=== PATIENT | male | born 1940 | race Caucasian/White ===

== ENCOUNTER 2018-05-01 21:06 | Inpatient (IN) | payer OTHER, MEDICAID ==
[~2018-05-01] VITALS: Ht 185.4 cm; Wt 101.6 kg
[~2018-05-01 21:06] MED LIST: A + D FIRST A42.5 GM TOP; A + D FIRST A42.5 GM TP; ANTI-DIARRH1 MG/5 ML PO; ASPIRIN325 PO; AUGMENTIN 875875 MG PO; B12INJ IM; BENAZEPRIL HCL40 MG PO; CARAFATE1 GM/10 ML PO; CARDIZEM CD180 MG PO; CARVEDILOL12.5 MG PO; CARVEDILOL25 MG PO; CARVEDILOL3.125 MG PO; CARVEDILOL6.25 MG PO; CELEXA; CELEXA20 MG PO; CELEXA40 MG PO; CIPRO500 MG PO; COLACE 100 MG100 MG PO; COLACE100 MG PO; COREG25 MG PO; COUMADIN 5 MG TA5 M1 PO; CRESTOR10 MG PO; DIGOXIN250 MCG PO; DOXYCYCLINE HYC50 MG; DULCOLAX5 MG PO; ENOXAPARIN80 MG/0.1 SUBQ; FERROUS GLUCON325 M4 PO; FISH OIL 1,2001 EAC4 PO; FUROSEMIDE 40 M40 M1 PO; GLUCOPHAGE1000 MG PO; GLUCOPHAGE500 MG PO; KLOR-CON 1010 MEQ; KLOR-CON M2020 MEQ PO; LANOXIN 0.120.125 M1 PO; LASIX 40 MG TAB40 M2 PO; LASIX 80 MG TAB80 MG PO; LIPITOR 20 MG T20 M1 PO; LISINOPRIL5 MG PO; MAGNESIUM OXID400 MG PO; METFORMIN HCL500 MG PO; MIRALAX17 GM PO; OMEPRAZOLE20 M2 PO; OMEPRAZOLE40 MG PO; PHENERGAN 25 MG25 MG PO; POTASSIUM20 PO; PRINIVIL5 MG PO; PROTONIX40 M1 PO; PROTONIX40 M2 PO; REGLAN 10 MG TA10 MG PO; SAW PALMETTO C1 EACH PO; SIMVASTATIN40 MG PO; SPIRONOLACTONE25 M1 PO; TYLENOL325 MG PO; VITAMIN D1000 UNI2 PO; XANAX 0.5 MG0.5 MG PO; ZOCOR PO; ZOFRAN4 MG PO
[2018-05-01 21:15] VITALS: BP 82/42
[2018-05-01] MEDS ORDERED: HUMALOG100 UNIT/1 (21:25)
[2018-05-01] MEDS ORDERED: LEVEMIR SUBQ (21:26)
[2018-05-01] MEDS ORDERED: ALLOPURINOL 10100 M1 (21:27)
[2018-05-01] MEDS ORDERED: ELIQUIS5 MG (21:27)
[2018-05-01 21:53] LABS: HEMATOCRIT 31.6 % (42.0-52.0); HEMOGLOBIN 9.8 gm/dL (14.0-18.0); MCH 25.1 pg (26.0-34.0); MCV 80.9 fL (80.0-100.0); MPV 8.4 fl. (7.2-11.1); NUCLEATED RBCS 0 /100WBC; PLATELET COUNT* 303 thou/uL (150-400); RBC 3.91 mil/uL (4.50-6.00); RDW-CV 19.4 % (10.5-14.5); WBC 20.1 thou/uL (4.0-11.0)
[2018-05-01 22:04] LABS: ANION GAP 11 mmol/L (7-16); BUN 35 mg/dL (7-18); CALCIUM 8.3 mg/dL (8.5-10.1); CHLORIDE 101 mmol/L (98-107); CO2 26 mmol/L (21-32); CREATININE 2.2 mg/dL (0.6-1.3); GLUCOSE 162 mg/dL (70-99); POTASSIUM 4.7 mmol/L (3.5-5.1); SODIUM 138 mmol/L (136-145)
[2018-05-01 22:17] LABS: ALBUMIN 2.5 g/dL (3.4-5.0); ALKALINE PHOSPHATASE 133 U/L (46-116); NT-PRO BRAIN NAT PEPTIDE 2315 pg/mL (<300); SGOT 10 U/L (15-37); SGPT 13 U/L (30-65); TOTAL BILIRUBIN 0.6 mg/dL (<0.1-1.0); TOTAL PROTEIN 7.1 g/dL (6.4-8.2); TROPONIN-I LEVEL <0.06 ng/mL (<0.06)
[2018-05-01 22:59] LABS: ABSOLUTE BASOPHILS 0.2 thou/uL (0.0-0.2); ABSOLUTE LYMPHOCYTES 1.4 thou/uL (0.8-5.3); ABSOLUTE MONOCYTES 1.4 thou/uL (0.0-1.2); ABSOLUTE NEUTROPHILS 17.1 thou/uL (1.6-8.1)
[2018-05-01 23:00] LABS: OVALOCYTES Occasional; PLATELET ESTIMATE ADEQUATE
[2018-05-01 23:01] LABS: ANISOCYTOSIS 1+
[2018-05-01 23:42] VITALS: BP 99/38
[2018-05-01 23:52] LABS: URINE BILIRUBIN NEGATIVE (Negative); URINE BLOOD TRACE (Negative); URINE CLARITY CLEAR; URINE COLOR YELLOW; URINE GLUCOSE-RANDOM NEGATIVE (Negative); URINE KETONES NEGATIVE (Negative); URINE LEUKOCYTES-REFLEX NEGATIVE (Negative); URINE NITRITE-REFLEX NEGATIVE (Negative); URINE PROTEIN NEGATIVE (Negative); URINE SPECIFIC GRAVITY 1.015 (1.005-1.030); URINE UROBILINOGEN 0.2 E.U./dl (0.2-1.0)
[2018-05-02] VITALS: BP 88/52
[2018-05-02] MEDS ORDERED: SENNA8.6 MG PO (01:44)
[2018-05-02] MEDS ORDERED: MIRALAX17 GM PO (01:45)
[2018-05-02 03:54] VITALS: BP 101/51
[2018-05-02 07:58] VITALS: BP 92/44
--- NOTE | 2018-05-02 14:30 | 2DMMODE ---
[place] [address] 2 D/M-MODE ECHOCARDIOGRAM Name: TAYA GUSMAN Room: [address] IN [facility]#: [id number] Admission: 05/01/18 Attend Phys: Robert Wang Discharge: Date of : 40 Date of Service: 05/02/18 1430 Report #: [id number] THIS REPORT FOR: //name// APPROVED REPORT Study performed: 05/02/2018 11:17:36 EXAM: Comprehensive 2D, Doppler, and color-flow Echocardiogram Patient Location: In-Patient Room #: [facility] Status: routine BSA: 2.04 HR: 64 bpm BP: 92/44 mmHg Rhythm: Atrial Fibrillation Other Information Study Quality: Good Indications Hypotension Congestive Heart Failure Atrial Fibrillation 2D Dimensions LVEF(%): 53.08 (>50%) IVSd: 12.52 (7-11mm) LVOT Diam: 22.10 (18-24mm) LVDd: 51.94 mm PWd: 12.21 (7-11mm) Ascending Ao: 42.22 (22-36mm) LVDs: 37.65 (25-40mm) Aortic Root: 38.53 mm Cam's LVEF: 53.08 % Volumes Left Atrial Volume (Systole) LA ESV Index: 49.10 mL/m2 Aortic Valve AoV Peak William.: 1.87 m/s AO Peak Gr.: 14.05 mmHg LVOT Max P.19 mmHg AO Mean Gr.: 7.84 mmHg LVOT Mean P.41 mmHg LVOT Max V: 1.14 m/s AO V2 VTI: 27.03 cm LVOT Mean V: 0.70 m/s XIN (VTI): 2.38 cm2 LVOT V1 VTI: 16.80 cm AI [place]: 1.47 m/s2 [place] [address] 2 D/M-MODE ECHOCARDIOGRAM Name: TAYA GUSMAN Room: [address] IN ..#: [id number] Admission: 05/01/18 Attend Phys: Robert Wang Discharge: Date of : 40 Date of Service: 05/02/18 1430 Report #: [id number] AI PHT: 704.06 ms Mitral Valve MV Decel. Time: 121.83 ms MV PHT: 35.33 ms MVA (PHT): 6.23 cm2 TDI Lateral E' William.: 0.12 m/s Pulmonary Valve PV Peak William.: 1.59 m/s PV Peak Gr.: 10.14 mmHg Left Ventricle The left ventricle is normal size. There is normal LV segmental wall motion. There is normal left ventricular wall thickness. Left ventricular systolic function is normal. The left ventricular ejection fraction is within the normal range. LVEF is 60%. This study is not technically sufficient to allow evaluation of the LV diastolic function due to atrial fibrillation. Right Ventricle The right ventricle is normal size. The right ventricular systolic function is normal. Atria Left atrium is mildly dilated. The right atrium size is normal. Aortic Valve Mild aortic valve sclerosis. Mild aortic regurgitation. There is no aortic valvular stenosis. Mitral Valve The mitral valve is normal in structure. There is no mitral valve regurgitation noted. No evidence of mitral valve stenosis. Tricuspid Valve The tricuspid valve is normal in structure. Unable to assess PA pressure. Trace tricuspid regurgitation. Pulmonic Valve The pulmonary valve is normal in structure. There is no pulmonic valvular [place] [address] 2 D/M-MODE ECHOCARDIOGRAM Name: TAYA GUSMAN Room: [address]#: [id number] Admission: 05/01/18 Attend Phys: Robert Wang Discharge: Date of : 40 Date of Service: 05/02/18 1430 Report #: [id number] The aortic root is normal in size. IVC is normal in size and collapses with >50% inspiration Pericardium There is no pericardial effusion. <Conclusion> The left ventricle is normal size. There is normal left ventricular wall thickness. Left ventricular systolic function is normal. The left ventricular ejection fraction is within the normal range. LVEF is 60%. This study is not technically sufficient to allow evaluation of the LV diastolic function due to atrial fibrillation. The right ventricle is normal size. Left atrium is mildly dilated. Mild aortic valve sclerosis. Mild aortic regurgitation. There is no aortic valvular stenosis. The mitral valve is normal in structure. IVC is normal in size and collapses with >50% inspiration There is no pericardial effusion. There is normal LV segmental wall motion. <ELECTRONICALLY SIGNED> By: Chaka Taylor MD, FACC 05/02/18 1430 1430 1430 Chaka Taylor MD, FACC /INF
[2018-05-02 15:37] VITALS: BP 91/50
[2018-05-02 20:00] VITALS: BP 81/43
[2018-05-02 20:02] LABS: HEMATOCRIT 27.9 % (42.0-52.0); HEMOGLOBIN 8.7 gm/dL (14.0-18.0); MCH 25.3 pg (26.0-34.0); MCHC 31.2 g/dL (28.0-37.0); MPV 8.8 fl. (7.2-11.1); NUCLEATED RBCS 0 /100WBC; PLATELET COUNT* 264 thou/uL (150-400); RBC 3.44 mil/uL (4.50-6.00); RDW-CV 19.1 % (10.5-14.5); WBC 15.6 thou/uL (4.0-11.0)
[2018-05-02 20:04] LABS: CALCIUM 7.6 mg/dL (8.5-10.1); CREATININE 1.6 mg/dL (0.6-1.3); POTASSIUM 4.4 mmol/L (3.5-5.1)
[2018-05-02 20:30] LABS: ABSOLUTE EOSINOPHILS 0.2 thou/uL (0.0-0.7); ABSOLUTE LYMPHOCYTES 1.7 thou/uL (0.8-5.3); ABSOLUTE MONOCYTES 1.2 thou/uL (0.0-1.2); ABSOLUTE NEUTROPHILS 12.5 thou/uL (1.6-8.1)
[2018-05-02 20:31] LABS: ANISOCYTOSIS 1+; MICROCYTES Occasional; OVALOCYTES 1+
[2018-05-02 20:32] LABS: PLATELET ESTIMATE ADEQUATE
[2018-05-03] VITALS: BP 102/48
[2018-05-03 04:00] VITALS: BP 87/43
[2018-05-03 08:00] VITALS: BP 84/42
[2018-05-03 12:37] VITALS: BP 87/41
[2018-05-03 13:25] LABS: HEMOGLOBIN 9.8 gm/dL (14.0-18.0); MCH 25.3 pg (26.0-34.0); MCHC 30.6 g/dL (28.0-37.0); MCV 82.6 fL (80.0-100.0); MPV 8.6 fl. (7.2-11.1); NUCLEATED RBCS 0 /100WBC; PLATELET COUNT* 274 thou/uL (150-400); RBC 3.88 mil/uL (4.50-6.00); RDW-CV 19.1 % (10.5-14.5); WBC 15.5 thou/uL (4.0-11.0)
[2018-05-03 13:50] LABS: ABSOLUTE LYMPHOCYTES 1.2 thou/uL (0.8-5.3); ABSOLUTE MONOCYTES 0.3 thou/uL (0.0-1.2); ANISOCYTOSIS 1+; PLATELET ESTIMATE ADEQUATE; POIKILOCYTOSIS 1+
[2018-05-03 13:52] LABS: CALCIUM 8.1 mg/dL (8.5-10.1); CREATININE 1.6 mg/dL (0.6-1.3); POTASSIUM 4.7 mmol/L (3.5-5.1)
[2018-05-03 16:33] VITALS: BP 112/52
--- NOTE | 2018-05-03 17:29 | EKG ---
[place] [address] ELECTROCARDIOGRAM REPORT Name: TAYA GUSMAN Room: [address] ADM IN M.R.#: [id number] Admission: 05/01/18 Attend Phys: Alena Caceres Discharge: Date of : 40 Report #: [id number] THIS REPORT FOR: //name// [facility] ED Test Date: 2018-05-01 Test Time: 21:44:59 Pat Name: TAYA GUSMAN Department: Room: [facility] Gender: M Senior Branch Manager: KAEL : 1940 Requested By: Purvi Holm Order Number: [id number] MD: Ted Solano Measurements Intervals [place] Rate: 81 P: IN: QRS: -68 QRSD: 159 T: 45 QT: 446 QTc: 518 Interpretive Statements Atrial fibrillation Right bundle branch block Inferior infarct, old Compared to ECG 05/16/2015 10:07:14 Atrial flutter no longer present Left anterior fascicular block no longer present Myocardial infarct finding still present Electronically Signed On 05-03-2018 17:29:08 CDT by Ted Solano [email or web address] <ELECTRONICALLY SIGNED> By: Ted Solano MD, FACC 05/03/18 1729 Ted Solano MD, FAC /EPI
[2018-05-04] VITALS: BP 104/52
[2018-05-04 04:00] VITALS: BP 96/55
[2018-05-04 04:43] LABS: ABSOLUTE BASOPHILS 0.1 thou/uL (0.0-0.2); ABSOLUTE MONOCYTES 0.6 thou/uL (0.0-1.2); ABSOLUTE NEUTROPHILS 9.5 thou/uL (1.6-8.1); BASOPHILS 1.2 %; EOSINOPHILS 0.1 %; HEMOGLOBIN 8.2 gm/dL (14.0-18.0); LYMPHOCYTES 8.9 %; MCH 25.8 pg (26.0-34.0); MCHC 31.6 g/dL (28.0-37.0); MCV 81.6 fL (80.0-100.0); MONOCYTES 5.1 %; MPV 8.6 fl. (7.2-11.1); NUCLEATED RBCS 0 /100WBC; PLATELET COUNT* 243 thou/uL (150-400); POLYS 84.7 %; RBC 3.19 mil/uL (4.50-6.00); WBC 11.2 thou/uL (4.0-11.0)
[2018-05-04 04:55] LABS: CALCIUM 7.9 mg/dL (8.5-10.1); CREATININE 1.2 mg/dL (0.6-1.3); POTASSIUM 4.6 mmol/L (3.5-5.1)
[2018-05-04 06:06] LABS: ESR (SEDRATE) 71 mm/hr (0-20)
[2018-05-04 09:00] VITALS: BP 112/52
[2018-05-04 12:51] VITALS: BP 127/82
[2018-05-04 19:30] VITALS: BP 131/71
[2018-05-05] VITALS (11 sets, daily range): BP systolic 79–115; BP diastolic 48–75
--- NOTE | 2018-05-05 11:33 | CON ---
[address] [address] CONSULTATION Name: TAYA GUSMAN Room: [address] IN .R.#: [id number] Admission: 05/01/18 Attend Phys: Alena Caceres Discharge: Date of : 40 Report #: [id number] THIS REPORT FOR: //name// CC: Silverio Wang DATE OF SERVICE: 05/04/2018 ATTENDING PHYSICIAN: Bessy Chen MD REASON FOR EVALUATION: Elevated acute phase reactants, specifically sed rate and CRP, unclear significance. HISTORY OF PRESENT ILLNESS: Chart reviewed, patient examined. 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 He reports falling off his wheelchair. On evaluation, he was found to have some digoxin toxicity. Chest x-ray showed basilar changes. Urinalysis was otherwise unremarkable. On questioning, he denies significant amount of pain at this point. quite limited, lives in a facility, do not appreciate any exposure history. He denies particular breathing issues. No abdominal complaints on particular question about diarrhea or constipation. He has been empirically started on ceftriaxone. ALLERGIES: None known. MEDICATIONS: Include insulin, hydrocortisone, senna, docusate sodium, atorvastatin, ceftriaxone, ondansetron, insulin lispro, allopurinol. PAST MEDICAL HISTORY: As described above, diabetes mellitus type 2 complicated by vasculopathy. He has a cardiomyopathy with known history of congestive heart failure, reflux, depression, dementia, BPH. Does have a history of obstructive sleep apnea, refuses CPAP. Has a history of elevated cholesterol, atrial fibrillation, hypertension. SOCIAL HISTORY: Nonsmoker, no ethanol. FAMILY HISTORY: Noncontributory. REVIEW OF SYSTEMS: As above. PHYSICAL EXAMINATION: GENERAL: He is arousable, in mild to moderate distress. He seems to be tracking at least to some degree. He is chronically ill and undernourished. VITAL SIGNS: Temperature 97.7, pulse 78, respirations 14, blood pressure 127/82. [place] [address] CONSULTATION Name: TAYA GUSMAN Room: [address] IN [facility]#: [id number] Admission: 05/01/18 Attend Phys: Alena Caceres Discharge: Date of : 40 Report #: [id number] SKIN: Warm and dry. NECK: Supple. LUNGS: Have some diminished breath sounds and crackles at the bases. HEART: Irregular. No appreciated murmur. ABDOMEN: Soft, mildly distended. There are no peritoneal signs. EXTREMITIES: His lower extremities, vascular insufficiency appearance. They are somewhat cool to touch. There are no inflammatory eruptions noted. Joints appear to be unremarkable as well. GENITOURINARY: Deferred. RECTAL: Deferred. LABORATORY DATA: CBC: White count of 11.2, H and H 8.2 and 26.0, platelets of 243. Differential unremarkable. Sed rate was 71. CRP elevated at 114.8. Electrolytes: Sodium 135, potassium 4.6, chloride 107, bicarbonate is 23, BUN and creatinine 22 and 1.2, estimated GFR 59. Ferritin was actually normal at 114. Lactic acid of 1.7. Blood cultures sterile thus far. Digoxin was 2.6 on admission. Chest x-ray: Left basilar atelectasis, possible small effusion. Liver functions otherwise unremarkable. Borderline elevated alkaline phosphatase of 133. Calcium was 8.3. . Urinalysis unremarkable. ASSESSMENT: Elevated sedimentation rate as well as CRP and the patient does have a significant amount of medical disease burden. I do not see any focus of infection. Did have a negative MYRANDA back in 2010 and a normal sed rate in 2010 as well. At this point, probably not reasonable to continue the ceftriaxone. Certainly, had some marker indicative of some sort of degree of inflammation. We will repeat the MYRANDA, some additional studies. maybe worthwhile to repeat it to see if it is trending up or down coming days to weeks. <ELECTRONICALLY SIGNED> By: Juan Flower MD 05/05/18 1133 1342 0040Joshweta Flower MD /nt
[2018-05-05 13:32] LABS: HEMATOCRIT 31.5 % (42.0-52.0); HEMOGLOBIN 9.4 gm/dL (14.0-18.0); MCH 24.9 pg (26.0-34.0); MCHC 29.9 g/dL (28.0-37.0); MCV 83.2 fL (80.0-100.0); MPV 8.3 fl. (7.2-11.1); NUCLEATED RBCS 0 /100WBC; RBC 3.78 mil/uL (4.50-6.00); RDW-CV 19.3 % (10.5-14.5); WBC 21.7 thou/uL (4.0-11.0)
[2018-05-05 13:39] LABS: PLATELET COUNT* 326 thou/uL (150-400)
[2018-05-05 13:43] LABS: APTT 32.7 Seconds (25.0-31.3); INR 1.1; PROTIME 10.9 Seconds (9.20-11.50)
[2018-05-05 13:46] LABS: CALCIUM 7.4 mg/dL (8.5-10.1); CREATININE 1.5 mg/dL (0.6-1.3)
[2018-05-05 13:50] LABS: ALBUMIN 1.9 g/dL (3.4-5.0); MAGNESIUM 2.2 mg/dL (1.8-2.4); PHOSPHORUS* 3.1 mg/dL (2.5-4.9); TOTAL BILIRUBIN 0.2 mg/dL (<0.1-1.0)
[2018-05-05 14:24] LABS: ANISOCYTOSIS 1+; HYPOCHROMASIA 1+; OVALOCYTES Occasional
[2018-05-05 14:49] LABS: ABSOLUTE LYMPHOCYTES 1.1 thou/uL (0.8-5.3); ABSOLUTE MONOCYTES 1.1 thou/uL (0.0-1.2); ABSOLUTE NEUTROPHILS 19.5 thou/uL (1.6-8.1)
[2018-05-06] VITALS (16 sets, daily range): BP systolic 75–98; BP diastolic 14–67
[2018-05-06 03:47] LABS: HEMATOCRIT 29.1 % (42.0-52.0); MCH 25.4 pg (26.0-34.0); MCHC 30.8 g/dL (28.0-37.0); MCV 82.6 fL (80.0-100.0); MPV 8.5 fl. (7.2-11.1); RBC 3.53 mil/uL (4.50-6.00); RDW-CV 19.5 % (10.5-14.5)
[2018-05-06 04:11] LABS: ALBUMIN 1.8 g/dL (3.4-5.0); CALCIUM 7.6 mg/dL (8.5-10.1); CREATININE 1.5 mg/dL (0.6-1.3); MAGNESIUM 2.4 mg/dL (1.8-2.4); POTASSIUM 5.1 mmol/L (3.5-5.1); TOTAL BILIRUBIN 0.3 mg/dL (<0.1-1.0); TOTAL PROTEIN 5.7 g/dL (6.4-8.2)
[2018-05-06 04:31] LABS: TROPONIN-I LEVEL 2.05 ng/mL (<0.06)
[2018-05-06 12:13] LABS: CALCIUM 7.6 mg/dL (8.5-10.1); CREATININE 1.6 mg/dL (0.6-1.3); POTASSIUM 5.2 mmol/L (3.5-5.1)
[2018-05-06 16:37] LABS: URINE BILIRUBIN NEGATIVE (Negative); URINE BLOOD 3+ (Negative); URINE CLARITY CLEAR; URINE COLOR YELLOW; URINE GLUCOSE-RANDOM NEGATIVE (Negative); URINE KETONES NEGATIVE (Negative); URINE LEUKOCYTES-REFLEX NEGATIVE (Negative); URINE NITRITE-REFLEX NEGATIVE (Negative); URINE PROTEIN 2+ (Negative); URINE SPECIFIC GRAVITY >= 1.030 (1.005-1.030); URINE UROBILINOGEN 0.2 E.U./dl (0.2-1.0)
[2018-05-06 16:48] LABS: BACTERIA-REFLEX 1-9 Few /HPF (None Seen); MUCUS 0-3 Light strn/LPF (None Seen); SQUAMOUS 0-3 Few /LPF (0-3); URINE RBC >20 Many /HPF (0-2); URINE WBC-REFLEX 0-5 Rare /HPF (0-5)
[2018-05-06 16:50] LABS: CRYSTALS None Seen /LPF (None Seen); FINE GRANULAR CASTS 0-3 Few /LPF (None Seen)
[2018-05-07] VITALS (15 sets, daily range): BP systolic 74–101; BP diastolic 46–68
[2018-05-07 04:13] LABS: ABSOLUTE BASOPHILS 0.1 thou/uL (0.0-0.2); ABSOLUTE MONOCYTES 1.6 thou/uL (0.0-1.2); ABSOLUTE NEUTROPHILS 14.7 thou/uL (1.6-8.1); BASOPHILS 0.3 %; EOSINOPHILS 0.1 %; HEMATOCRIT 27.8 % (42.0-52.0); HEMOGLOBIN 8.6 gm/dL (14.0-18.0); LYMPHOCYTES 10.9 %; MCH 25.8 pg (26.0-34.0); MCV 83.1 fL (80.0-100.0); MONOCYTES 8.6 %; MPV 9.3 fl. (7.2-11.1); NUCLEATED RBCS 0 /100WBC; PLATELET COUNT* 216 thou/uL (150-400); POLYS 80.1 %; RBC 3.34 mil/uL (4.50-6.00); RDW-CV 19.7 % (10.5-14.5); WBC 18.4 thou/uL (4.0-11.0)
[2018-05-07 04:55] LABS: ALBUMIN 2.1 g/dL (3.4-5.0); ALKALINE PHOSPHATASE 84 U/L (46-116); ANION GAP 9 mmol/L (7-16); BUN 28 mg/dL (7-18); CALCIUM 7.6 mg/dL (8.5-10.1); CHLORIDE 110 mmol/L (98-107); CHOLESTEROL 110 mg/dL (<200); CO2 20 mmol/L (21-32); CREATININE 1.5 mg/dL (0.6-1.3); GLUCOSE 170 mg/dL (70-99); HDL CHOLESTEROL 22 mg/dL (>40); LDL CHOLESTEROL 68 mg/dL (<100); MAGNESIUM 2.4 mg/dL (1.8-2.4); POTASSIUM 4.9 mmol/L (3.5-5.1); SGOT 824 U/L (15-37); SGPT 1062 U/L (30-65); SODIUM 139 mmol/L (136-145); TOTAL BILIRUBIN 0.4 mg/dL (<0.1-1.0); TOTAL PROTEIN 5.5 g/dL (6.4-8.2); TRIGLYCERIDE 100 mg/dL (<150); VLDL 20 mg/dL (<40)
[2018-05-07 04:56] LABS: % SATURATION 11 % (20-39); IRON 17 ug/dL (50-175)
[2018-05-07 04:57] LABS: SERUM ASSESSMENT CLEAR; TROPONIN-I LEVEL 2.14 ng/mL (<0.06)
--- NOTE | 2018-05-07 11:14 | CON ---
[address] [address] CONSULTATION Name: TAYA GUSMAN Room: [address] IN .R.#: [id number] Admission: 05/01/18 Attend Phys: Alena Caceres Discharge: Date of : 40 Report #: [id number] THIS REPORT FOR: //name// CC: Silverio Wang DATE OF SERVICE: 05/06/2018 CONSULT REQUESTED BY: Dr. Gallo. INDICATION FOR CONSULTATION: Pneumonia/possible sepsis. HISTORY OF PRESENT ILLNESS: This is a 77-year-old gentleman. His past medical history is as mentioned below. The patient does not have a history of COPD and is essentially a lifetime nonsmoker. He, however, does have a history of esophageal strictures and has had dilatation performed in the past. He also has obstructive sleep apnea and refuses CPAP. Further, the patient has atrial fibrillation and he has been anticoagulated. He also has a previous history of MRSA colonization. He is a resident of a senior care at this time. He is initially admitted on 05/01/2018, presentation was with him being found on the floor. The senior care had reported poor oral intake and increasing weakness. Upon initial evaluation, it was found that the patient in fact has had recently increasing dysphagia. The patient is unable to describe how long he has had this; however, he does report progressive worsening over the last couple of weeks. An EGD was planned. The patient previously being on anticoagulation with Eliquis, this was held in preparation for the EGD. The patient also was found have an elevated digoxin level on initial presentation. Since then, the patient has noted to be hypotensive. He is not describing any chest pain; however, he does have elevation in troponin I, which is consistent with a non-ST myocardial infarction. He has passed his bedside swallow evaluation; however, he has difficulty swallowing on account of food getting stuck in his chest. He does have swelling of the lower extremities. He is maintaining blood pressure, but his blood pressure is on the lower side at 89/59. He does appear to be adequately perfused at this time. The patient answered to the negative for 12 questions for review of systems except as mentioned above. The patient, however, does provide only limited history. PAST MEDICAL HISTORY: Esophageal dysphagia. He has had dilatation performed in the past. Chronic atrial fibrillation on anticoagulation, dementia, colon polyps, gastroesophageal reflux disease, benign prostatic hypertrophy, obstructive sleep apnea refused CPAP in the past, hypertension and hyperlipidemia. The patient's last available echocardi[place] [address] CONSULTATION Name: TAYA GUSMAN Room: [address] IN [facility]#: [id number] Admission: 05/01/18 Attend Phys: Alena Caceres Discharge: Date of : 40 Report #: [id number] recently a couple of days ago shows a left ventricular ejection fraction of 60%. The right heart pressures are not elevated on this echo. There is mild aortic regurgitation. SOCIAL HISTORY: He is a resident of a senior care. No known history of heavy alcohol use or illegal drug use and is essentially a lifetime nonsmoker. FAMILY HISTORY: Noncontributory. CURRENT MEDICATIONS: List in [facility] reviewed. HOME MEDICATIONS: List also in [facility] reviewed. PHYSICAL EXAMINATION: GENERAL: He is alert, awake and oriented; however, is able to provide only a limited history. VITAL SIGNS: He has a pulse of 90 with a blood pressure of 89/59, but he is sitting in bed with assistance and he does not appear to be in any distress. He does not have any hypoperfusion. He is saturating 98%. He is afebrile with temperature of 36.4. He is only on 1 liter nasal cannula. His respiratory rate has been labile between 20 and 27. HEENT: Head is normocephalic and atraumatic. Pupils are equal and reactive. There is no throat erythema. NECK: Does not show raised JVP, asymmetry, mass or lymph nodes. CHEST: Symmetrical expansion on inspection and palpation. On auscultation, chest is essentially clear. HEART: Irregular, no murmur. ABDOMEN: Soft and nontender. EXTREMITIES: Lower extremities showed 1+ edema. There is no calf tenderness. SKIN: Dry and intact. NEUROLOGICAL: Moves all extremities bilaterally equally and spontaneously with no focal deficit identified. LABORATORY DATA: The patient's chest x-ray does not show major abnormalities; however, there is a large infiltrate in the right lower lobe which was identified on the CT of the abdomen and pelvis just 2 days ago. This was not well visualized on the x-ray. There is a smaller infiltrate in the left lower lobe as well. The patient's lab work including CBC as well as chemistries, which do show mild elevation in creatinine to 1.5 and note that his baseline is 1.2 in [facility] reviewed. Coagulation studies in [facility] reviewed. Digoxin level which is elevated, reviewed. ASSESSMENT AND PLAN: 1. Aspiration pneumonia/pulmonary infiltrates. There are large pulmonary infiltrates noted on the recent CT of the abdomen and pelvis. These are not well visualized on the x-ray. At this time, the patient is on vancomycin, [facility] [address] [place] [address] CONSULTATION Name: TAYA GUSMAN Room: [address]#: [id number] Admission: 05/01/18 Attend Phys: Alena Caceres Discharge: Date of : 40 Report #: [id number] meropenem and ceftriaxone as well as Levaquin. For now, we will go ahead and discontinue Levaquin and ceftriaxone. For now, I continued with vancomycin as well as meropenem. If the patient remains stable then I will be inclined to switch his meropenem over to Zosyn tomorrow. We will reassess vancomycin tomorrow. He does have atypical coverage on account of the fact that he has already had Levaquin this morning. This should last in the system likely for the next 48 hours. If he continues to improve, then potentially we could switch his vancomycin over to doxycycline in the next day or two. Recommend maintaining strict aspiration precautions. He needs to be fully sitting up when taking orally. 2. Esophageal dysphagia. He is obviously having dysphagia with solid food. I ordered a clear liquid diet pending EGD and esophageal dilatation. Once this is performed, the patient may benefit from a video swallow down the line. He has passed his bedside swallow. Therefore, we will continue with clear liquids; however, as noted above he needs to be fully sitting up when he is taking orally. Note that he has a history of gastroesophageal reflux disease and takes a proton pump inhibitor at home. Therefore, I would go ahead and give him Protonix IV as well for now pending GI review. 3. Hypotension/mild renal insufficiency/fluid overload. He appears to be overall fluid body volume overloaded. He is only on 1 liter nasal cannula, though his blood pressure is soft. I will go ahead and give him albumin. I will cut back on normal saline. I may in fact discontinue saline soon. We will watch his creatinine closely. Note that there is mention of adrenal insufficiency in the chart as well. It is not known to me as to whether this is suspected adrenal insufficiency during this admission or whether the patient has a previous history 4. Non-ST myocardial infarction. The Cardiology service is on the case. 5. Elevated Digoxin level, defer to Cardiology. 6. Chronic atrial fibrillation. Note that the patient is on anticoagulation at his senior care with Eliquis. Thanks for this consultation. <ELECTRONICALLY SIGNED> By: Karson Fabian MD 05/07/18 1114 1114 0022Adori Fabian MD /nt
--- NOTE | 2018-05-07 15:08 | EKG ---
[place] [address] ELECTROCARDIOGRAM REPORT Name: TAYA GUSMAN Room: [address] ADM IN M.R.#: [id number] Admission: 05/01/18 Attend Phys: Alena Caceres Discharge: Date of : 40 Report #: [id number] THIS REPORT FOR: //name// [facility] Test Date: 2018-05-07 Test Time: 08:25:49 Pat Name: TAYA GUSMAN Department: Room: [address] Gender: M Staff Anesthesiologist: : 1940 Requested By: Taya Escudero Order Number: [id number] Nathaly MD: Chaka Taylor Measurements Intervals [place] Rate: 116 P: [place]: QRS: -73 QRSD: 145 T: 102 QT: 345 QTc: 480 Interpretive Statements Atrial fibrillation Ventricular tachycardia, unsustained Right bundle branch block Consider inferior infarct Anterior infarct, age indeterminate Compared to ECG 05/01/2018 21:44:59 Ventricular tachycardia now present Myocardial infarct finding still present Electronically Signed On 05-07-2018 15:08:24 CDT by Chaka Taylor [email or web address] <ELECTRONICALLY SIGNED> By: Chaka Taylor MD, FACC 05/07/18 1508 0825 Chaka Taylor MD, [facility] /EPI
[2018-05-07 15:10] LABS: HEPATITIS B SURFACE AG Negative (Negative)
[2018-05-08] VITALS (23 sets, daily range): BP systolic 81–102; BP diastolic 50–75
[2018-05-08 05:17] LABS: ABSOLUTE LYMPHOCYTES 1.7 thou/uL (0.8-5.3); ABSOLUTE MONOCYTES 1.2 thou/uL (0.0-1.2); ABSOLUTE NEUTROPHILS 13.5 thou/uL (1.6-8.1); BASOPHILS 0.1 %; EOSINOPHILS 0.1 %; HEMATOCRIT 29.9 % (42.0-52.0); LYMPHOCYTES 10.3 %; MCH 25.4 pg (26.0-34.0); MCHC 30.2 g/dL (28.0-37.0); MCV 83.9 fL (80.0-100.0); MONOCYTES 7.2 %; MPV 10.3 fl. (7.2-11.1); NUCLEATED RBCS 1 /100WBC; PLATELET COUNT* 225 thou/uL (150-400); POLYS 82.3 %; RBC 3.56 mil/uL (4.50-6.00); RDW-CV 19.2 % (10.5-14.5); WBC 16.4 thou/uL (4.0-11.0)
[2018-05-08 06:00] LABS: CALCIUM 8.2 mg/dL (8.5-10.1); CREATININE 1.6 mg/dL (0.6-1.3); MAGNESIUM 2.7 mg/dL (1.8-2.4); POTASSIUM 4.8 mmol/L (3.5-5.1); TOTAL BILIRUBIN 0.6 mg/dL (<0.1-1.0); TOTAL PROTEIN 5.9 g/dL (6.4-8.2)
--- NOTE | 2018-05-08 14:05 | 2DMMODE ---
[place] [address] 2 D/M-MODE ECHOCARDIOGRAM Name: TAYA GUSMAN Room: [address] ADM IN [facility]#: [id number] Admission: 05/01/18 Attend Phys: Robert Wang Discharge: Date of : 40 Date of Service: 05/08/18 1405 Report #: [id number] THIS REPORT FOR: //name// APPROVED REPORT Study performed: 05/08/2018 10:56:49 EXAM: Limited 2D Echocardiogram Patient Location: In-Patient Room #: [facility] Status: routine BSA: 2.26 HR: 92 bpm BP: 96/64 mmHg Rhythm: NSR Other Information Study Quality: Good Indications Hypotension Congestive Heart Failure Assess EF 2D Dimensions LVEF(%): 20.90 (>50%) IVSd: 10.17 (7-11mm) LVDd: 60.99 mm PWd: 10.02 (7-11mm) LVDs: 55.06 (25-40mm) Aortic Root: 40.17 mm Cam's LVEF: 20.90 % Left Ventricle Left ventricle is mildly dilated. There is global hypokinesis of the left ventricle. There is normal left ventricular wall thickness. Left ventricular systolic function is severely decreased. LVEF is 20%. Right Ventricle The right ventricle is normal size. The right ventricular systolic function is normal. Atria Left atrium is mildly dilated. Right [place] [address] 2 D/M-MODE ECHOCARDIOGRAM Name: TAYA GUSMAN Room: [address] IN M.R.#: [id number] Admission: 05/01/18 Attend Phys: Robert Wang Discharge: Date of : 40 Date of Service: 05/08/18 1405 Report #: [id number] Aortic Valve Mild aortic valve sclerosis. Mitral Valve The mitral valve is normal in structure. Tricuspid Valve The tricuspid valve is normal in structure. Pulmonic Valve The pulmonary valve is normal in structure. Great Vessels The aortic root is normal in size. IVC is normal in size and collapses >50% with inspiration. Pericardium There is no pericardial effusion. Large left pleural effusion. <Conclusion> Left ventricle is mildly dilated. There is normal left ventricular wall thickness. Left ventricular systolic function is severely decreased. LVEF is 20%. There is global hypokinesis of the left ventricle. Left atrium is mildly dilated. Right atrium is mildly dilated. Mild aortic valve sclerosis. Large left pleural effusion. <ELECTRONICALLY SIGNED> By: Miguel Hernandez MD, FACC 05/08/18 1405 140 1405 Miguel Hernandez MD, FACC /INF
[2018-05-08 19:41] LABS: ALBUMIN 3.1 g/dL (3.4-5.0); CALCIUM 8.3 mg/dL (8.5-10.1); CREATININE 1.7 mg/dL (0.6-1.3); MAGNESIUM 2.9 mg/dL (1.8-2.4); TOTAL PROTEIN 5.8 g/dL (6.4-8.2)
[2018-05-09] VITALS (16 sets, daily range): BP systolic 77–112; BP diastolic 45–68
[2018-05-09 03:41] LABS: HEMATOCRIT 31.5 % (42.0-52.0); HEMOGLOBIN 9.4 gm/dL (14.0-18.0); MCV 83.6 fL (80.0-100.0); MPV 10.1 fl. (7.2-11.1); NUCLEATED RBCS 2 /100WBC; PLATELET COUNT* 285 thou/uL (150-400); RBC 3.77 mil/uL (4.50-6.00); RDW-CV 19.6 % (10.5-14.5); WBC 23.5 thou/uL (4.0-11.0)
[2018-05-09 04:16] LABS: ALBUMIN 3.2 g/dL (3.4-5.0); CALCIUM 8.2 mg/dL (8.5-10.1); CREATININE 1.9 mg/dL (0.6-1.3); MAGNESIUM 2.9 mg/dL (1.8-2.4); PHOSPHORUS* 5.2 mg/dL (2.5-4.9); POTASSIUM 5.4 mmol/L (3.5-5.1); TOTAL BILIRUBIN 1.2 mg/dL (<0.1-1.0); TOTAL PROTEIN 5.7 g/dL (6.4-8.2)
[2018-05-09 04:57] LABS: ABSOLUTE LYMPHOCYTES 1.9 thou/uL (0.8-5.3); ABSOLUTE MONOCYTES 2.8 thou/uL (0.0-1.2); ABSOLUTE NEUTROPHILS 18.8 thou/uL (1.6-8.1); PLATELET ESTIMATE ADEQUATE
[2018-05-09 04:58] LABS: ANISOCYTOSIS 1+; POLYCHROMASIA 1+
[2018-05-09 04:59] LABS: BURR CELLS 1+
[2018-05-10 08:43] VITALS: BP 116/59
[2018-05-10 11:25] VITALS: BP 116/59
[2018-05-10 12:10] VITALS: BP 91/55
--- NOTE | 2018-05-12 10:30 | CON ---
[facility] [address] [place] [address] CONSULTATION Name: TAYA GUSMAN Room: [address] M.R.#: [id number] Admission: 05/01/18 Attend Phys: Alena Caceres Discharge: 05/10/18 Date of : 40 Report #: [id number] THIS REPORT FOR: //name// CC: Miguel Wang DATE OF SERVICE: 05/03/2018 REFERRING PHYSICIAN: Robert Wang MD REASON FOR CONSULTATION: 1. Dysphagia, ____ esophageal dysphagia with known history of esophageal stricture with last EGD being performed in 04/2015. 2. Chronic atrial fibrillation on chronic anticoagulation in the form of apixaban. 3. Digoxin toxicity, currently improving. 4. Pneumonia. 5. Dementia. 6. Personal history of colon polyps with last examination being performed in 04/2015. 7. Chronic anemia. RECOMMENDATIONS: 1. We will need to hold the patient's apixaban for the next few days before we can do an upper endoscopy with possible dilation. If he does well, we can do this early next week. 2. We need to contact the patient's family for consent as the patient has underlying dementia and his contacts include his previous ex- Genny Smith at area code [phone] or his daughter, Bernardo Neff at [phone]. We will continue with all the current medication at this time otherwise, We will discuss this in more detail with the family over the next few days. HISTORY OF PRESENT ILLNESS: The patient is a pleasant, demented 77-year-old white male who was admitted to hospital with lightheadedness, dizziness and found to have digoxin toxicity. We were consulted to see the patient because of problems with esophageal dysphagia. The patient did not give much of a history, is a poor historian because of underlying dementia. However, he underwent both upper and lower endoscopy by me back in 04/2015 for anemia. At that time, his upper endoscopy revealed a ringed and corkscrew type of esophagus with a distal esophageal stricture, which was able to be dilated up to 50-[place]gu[place]an with Roach dilators. He has a small hiatal hernia as well. Colonoscopy at that time was extremely long because of ____ poor bowel preparation. The patient has had a number of polyps that were removed ____ all of which were precancer[place] [address] CONSULTATION Name: TAYA GUSMAN Room: [address]#: [id number] Admission: 05/01/18 Attend Phys: Alena Caceres Discharge: 05/10/18 Date of : 40 Report #: [id number] had a moderate amount of left-sided diverticular disease as well as hemorrhoids and hemorrhoidal tags. We have not seen him since that time. He is now admitted to the hospital because of problems with lightheadedness, dizziness and weakness. He is a resident of a local alf and was noted with low blood pressure and had a digoxin level that was high at 2.6. He is also in renal failure. He has been in the hospital for further evaluation and treatment. ALLERGIES: None. MEDICATIONS AT HOME: Include insulin, hydrocortisone, senna, docusate sodium, atorvastatin, insulin, lisinopril and allopurinol. PAST MEDICAL HISTORY: Remarkable for cardiomyopathy with known history of congestive heart failure, nonischemic in nature; chronic acid reflux; dementia; depression; BPH; history of sleep apnea, but refuses CPAP; elevated cholesterol and atrial fibrillation on chronic medications. SOCIAL HISTORY: The patient lives in a alf. He does not smoke or drink. FAMILY HISTORY: Negative. PHYSICAL EXAMINATION: GENERAL: Pleasant 77-year-old white male who cannot give much of a history. CARDIOPULMONARY EXAMINATION: Revealed a bradycardic rate and rhythm. LUNGS: Clear. ABDOMEN: Soft and not particularly tender. LABORATORY DATA: From the revealed a white count of 15.6, hemoglobin 8.7, platelet count 264,000, MCV is 81 and RDW is 19.1. Differential is normal. His sodium is 137, potassium is 4.4, chloride is 105, bicarbonate 27, BUN is 28, creatinine 1.6 for GFR of 42. His baseline renal function in 2014 was in the 60s. It is improved while he is in the hospital. His bilirubin was 0.6, alkaline phosphatase 133, AST 10, ALT 13 and albumin 2.5. DISCUSSION: At the present time, the patient is on anticoagulation. We need to hold that for right now before we can proceed with endoscopic evaluation. We will proceed with upper endoscopy and possible dilation early next week. I have discussed these plans with patient. We will discuss this with the family as well. <ELECTRONICALLY SIGNED> By: London Rodríguez DO 05/12/18 1030 [id number] Rodríguez DO /nt
== END 2018-05-10 13:00 | DRG 177 ==
LOC: M.ERS 21:06 → M.TBA-ER 22:39 → M.2W 22:39 → M.ICU 05-05 14:38 → M.ORTHSURG 05-09 14:07 → M.2W 05-09 17:47
PROVIDERS: Family Medicine; Internal Medicine; Internal Medicine Cardiovascular Disease; Internal Medicine Critical Care Medicine; Internal Medicine Gastroenterology; Personal Emergency Response Attendant; ADMIT Internal Medicine
DX: J69.0 Pneumonitis due to inhalation of food and vomit (principal); G93.41 Metabolic encephalopathy; N17.0 Acute kidney failure with tubular necrosis; I21.4 Non-ST elevation (NSTEMI) myocardial infarction; K72.00 Acute and subacute hepatic failure without coma; I50.21 Acute systolic (congestive) heart failure; J96.01 Acute respiratory failure with hypoxia; R65.11 Systemic inflammatory response syndrome (SIRS) of non-infectious origin with acute organ dysfunction; E27.40 Unspecified adrenocortical insufficiency; J15.9 Unspecified bacterial pneumonia; T46.0X5A Adverse effect of cardiac-stimulant glycosides and drugs of similar action, initial encounter; I95.9 Hypotension, unspecified; E78.00 Pure hypercholesterolemia, unspecified; E11.9 Type 2 diabetes mellitus without complications; I25.10 Atherosclerotic heart disease of native coronary artery without angina pectoris; F32.9 Major depressive disorder, single episode, unspecified; K21.9 Gastro-esophageal reflux disease without esophagitis; F03.90 Unspecified dementia, unspecified severity, without behavioral disturbance, psychotic disturbance, mood disturbance, and anxiety; N40.0 Benign prostatic hyperplasia without lower urinary tract symptoms; G47.33 Obstructive sleep apnea (adult) (pediatric); R13.19 Other dysphagia; E87.70 Fluid overload, unspecified; I48.2 Chronic atrial fibrillation; D64.9 Anemia, unspecified; D72.829 Elevated white blood cell count, unspecified; K22.2 Esophageal obstruction; E87.5 Hyperkalemia; I11.0 Hypertensive heart disease with heart failure; I25.5 Ischemic cardiomyopathy; R74.0 Nonspecific elevation of levels of transaminase and lactic acid dehydrogenase [LDH]; Z98.42 Cataract extraction status, left eye; Z98.52 Vasectomy status; Z79.01 Long term (current) use of anticoagulants; Z86.010 Personal history of colon polyps; Z82.49 Family history of ischemic heart disease and other diseases of the circulatory system; Z79.899 Other long term (current) drug therapy; Z79.82 Long term (current) use of aspirin